=== PATIENT | male | born 1975 | race Caucasian/White ===

== ENCOUNTER → 2021-07-13 | Outpatient (CLI) | payer OTHER ==
[~2021-07-13] MED LIST: GASTROGRAFIN SOLUTION 30ML (Q9963) As Ordered ONE; ISOVUE-370 76% 100ML VIAL As Ordered ONE
--- NOTE | 2021-07-13 14:33 | REP ---
INDICATION: LOWER ABD PAIN COMPARISON: None. TECHNIQUE: CT Scan of the abdomen and pelvis was performed with intravenous administration of 100 cc of Isovue 370, and oral contrast. Sagittal and coronal reconstruction images are performed. FINDINGS: Lung bases: Unremarkable. Liver: Multiple small hypodensities are seen throughout the liver, the largest measures 1.3 cm in diameter, located in the medial segment of the left lobe of the liver. These likely represent small cysts. Gallbladder: Unremarkable. Spleen: Normal. Adrenals: Normal. Pancreas: Normal. Kidneys: Normal. Small and large bowel: Unremarkable. Free fluid: None. Abdominal aorta: No aneurysm or dissection. Adenopathy: None. Appendix: Not inflamed. Osseous structures: There is spondylolysis of L5 with minimal anterior grade 1 spondylolisthesis of L5 on S1.. Pelvis: No mass. IMPRESSION: Multiple small cysts in the liver.There is spondylolysis of L5 with minimal anterior grade 1 spondylolisthesis of L5 on S1.. No other significant findings. <Electronically signed by David John > 07/13/21 [id number]
== END ==
LOC: M RAD 07:40
PROVIDERS: ATTEND Surgery
DX: K76.89 Other specified diseases of liver (principal); R10.30 Lower abdominal pain, unspecified; M43.17 Spondylolisthesis, lumbosacral region
CPT/HCPCS: 74177; Q9963; Q9967